=== PATIENT | female | born 1945 | race Caucasian/White ===

== ENCOUNTER 2017-01-31 08:11 | Emergency (ER) | payer MEDICARE ==
[2017-01-31] MEDS ORDERED: HYDROcodone/ACETAMIN 5-325 MG* 1 TAB PO ONE (09:45)
--- NOTE | 2017-01-31 10:27 | RAD ---
Indication: Head injury, loss of consciousness. CT of the brain was performed without IV contrast. Ventricular structures are midline. No midline shift is noted. The extra-axial spaces are prominent consistent with cortical atrophy. There is no evidence of intracranial mass or hemorrhage. No other high or low density lesions identified. Mastoid air cells and paranasal sinuses demonstrates mucous retention cyst in the left maxillary sinus and some opacification mucosal thickening of ethmoid air cells. Mastoid air cells are unremarkable. Overall no significant change is noted since previous exam of January 28, 2015. IMPRESSION: There is no evidence of intracranial mass or hemorrhage noted. Likely chronic sinusitis.
--- NOTE | 2017-01-31 10:40 | RAD ---
HISTORY: Fall, right shoulder pain COMPARISONS: None VIEWS: 7, Frontal internal rotation, external rotation, outlet, and axillary views of the right shoulder with frontal and frontal oblique views of the right clavicle FINDINGS: BONE DENSITY: Normal. BONES: There is a comminuted overriding fracture of the mid third of the right clavicle. The needle fragment overrides the lateral fragment by approximately 3 cm. JOINTS: There is mild osteoarthritis of the AC joint ALIGNMENT: There is no dislocation. SOFT TISSUES: Unremarkable. OTHER FINDINGS: None. IMPRESSION: COMMINUTED OVERRIDING FRACTURE OF THE RIGHT CLAVICLE
[2017-01-31 11:48] VITALS: BP 154/71
--- NOTE | 2017-01-31 19:08 | ED ---
Serene Hwang SooYoung, scribed for Walt Fitzpatrick MD on 01/31/17 at 0933 . Head Injury - HPI Summary HPI Summary: A 71 y/o F presents to ED after fall [employer] onset 729. Pt states she tripped over her blind dog and fell to the ground, landing directly on her R shoulder. She hit the R side of her head, had a momentary LOC. She was ambulatory after the fall. Associated sx: mildly confusion, R shoulder pain and collarbone pain, neck pain with movement. Denies abd pain, back pain, hip pain, dental trauma, diplopia, facial numbness. She broke her pelvis 4 years ago also after tripping over her dog. Took an aspirin yesterday. Takes Lisinopril. R-hand dominant. - History Of Current Complaint Chief Complaint: EDGeneral Stated Complaint: FALL Time Seen by Provider: 01/31/17 09:16 Hx Obtained From: Patient Mechanism Of Injury: Fall From A Standing Position Onset/Duration: Still Present Onset of Pain: Hours, Prior to Arrival Severity Initially: Moderate Pain Intensity: 7 Pain Scale Used: 0-10 Numeric Location of Head Injury: Parietal - R Associated Signs And Symptoms: LOC (Time In Secs./Mins/Hrs) - momentary, Confusion, Neck Pain, Other: - pos: R shoulder pain; R-sided collarbone. Neg abd pain, back pain, hip pain, dental trauma, diplopia, facial numbness - Allergies/Home Medications Allergies/Adverse Reactions: Allergies Allergy/AdvReac Type Severity Reaction Status Date / Time Tetracycline Allergy Rash Verified 01/31/17 08:22 PMH/Surg Hx/FS Hx/Imm Hx Previously Healthy: Yes Endocrine/Hematology History: Denies: Hx Anticoagulant Therapy, Hx Blood Disorders, Hx Blood Transfusions, Hx Bone Marrow Disease, Hx Diabetes, Hx Systemic Lupus Erythematosus, Hx Sickle Cell Disease, Hx Thyroid Disease, Hx Anemia, Hx Unexplained Bleeding, Other Endocrine/Hematological Disorders Cardiovascular History: Reports: Hx Hypertension Denies: Hx Congestive Heart Failure Respiratory History: Denies: Hx Asthma, Hx Chronic Obstructive Pulmonary Disease (COPD) GI History: Denies: Hx Ulcer History: Reports: Other Problems/Disorders - CYSTOCELE Denies: Hx Renal Disease Musculoskeletal History: Denies: Hx Arthritis, Hx Back Problems, Hx Bursitis, Hx Congenital Bone Abnormalities, Hx Fibromyalgia, Hx Gout, Hx Orthopedic Injury, Hx Osteoporosis, Hx Scoliosis, Hx Tendonitis, Other Musculoskeletal History Sensory History: Reports: Hx Contacts or Glasses - GLASSES Denies: Hx Hearing Aid Opthamlomology History: Reports: Hx Contacts or Glasses - GLASSES Psychiatric History: Reports: Hx Depression - Cancer History Hx Chemotherapy: No Hx Radiation Therapy: No Hx Palliative Cancer Treatment: No - Surgical History Surgery Procedure, Year, and Place: hernia repair, strangulated hernia repair in [facility]. Hx Anesthesia Reactions: No Infectious Disease History: No Infectious Disease History: Denies: Hx Hepatitis, Hx Human Immunodeficiency Virus (HIV), Traveled Outside the [place] in Last 30 Days - Family History Known Family History: Positive: Hypertension - Social History Occupation: Employed Full-time Lives: With Family Alcohol Use: Daily Alcohol Amount: wine with dinner Hx Substance Use: No Substance Use Type: Reports: None Hx Tobacco Use: No Smoking Status (MU): Never Smoked Tobacco Review of Systems Negative: Diplopia Negative: Dental Pain Negative: Abdominal Pain Positive: Other - pos: head pain, pain to L shoulder, collarbone, neck pain; neg : back and hip pain Neurological: Other - pos: mild confusion; momentary LOC Negative: Numbness - facial All Other Systems Reviewed And Are Negative: Yes Physical Exam - Summary Physical Exam Summary: The patient is well-nourished in no acute distress and in no acute pain. The skin is warm and dry and skin color reflects adequate perfusion. HEENT: The head is normocephalic. There is ecchymosis and hematoma on L temporal area. No Cosme's sign, no racoon sign.The pupils are equal and reactive. The conjunctivae are clear and without drainage. Nares are patent and without drainage. Mouth reveals moist mucous membranes and the throat is without erythema and exudate. The external ears are intact. The ear canals are patent and without drainage. The tympanic membranes are intact. No hemotympanum. No facial numbness. Neck is supple with full range of motion and non-tender. There are no carotid bruits. There is no neck vein distension. Respiratory: Chest is non-tender. Lungs are clear to auscultation and breath sounds are symmetrical and equal. Cardiovascular: Hear is regular rate and rhythm. There is no murmur or rub auscultated. There is no peripheral edema and pulses are symmetrical and equal. Abdomen: The abdomen is soft and non-tender. There are normal bowel sounds heard in all four quadrants and there is no organomegaly palpated. Musculoskeletal: There is no back pain noted. Marked tenderness to R shoulder and R clavicle, more on distal clavicle, with mild deformity. The humoral shaft is nontender. The forearm radius is nontender. Extremities are non-tender with full range of motion. There is good capillary refill. Distal neurovascular is intact. There is no peripheral edema or calf tenderness elicited. Neurological: Patient is alert and oriented to person, place and time. The patient has symmetrical motor strength in all four extremities. Cranial nerves are grossly intact. Deep tendon reflexes are symmetrical and equal in all four extremities. Negative NOAH's. Psychiatric: The patient has an appropriate affect and does not exhibit any anxiety or depression. Triage Information Reviewed: Yes Vital Signs On Initial Exam: Initial Vitals Temp Pulse Resp BP Pulse Ox 98.2 F 88 20 163/77 96 01/31/17 08:17 01/31/17 08:17 01/31/17 08:17 01/31/17 08:17 01/31/17 08:17 Vital Signs Reviewed: Yes - [place] Coma Scale Coma Scale Total: 15 [place] Coma Scale Comments: 15 at bedside. Likely 14 initially. Diagnostics - Vital Signs Vital Signs Temp Pulse Resp BP Pulse Ox 01/31/17 09:15 98.2 F 80 19 161/89 100 01/31/17 09:12 161/89 01/31/17 08:17 98.2 F 88 20 163/77 96 - Laboratory Lab Statement: Any lab studies that have been ordered have been reviewed, and results considered in the medical decision making process. - Radiology R SHOULDER Xray Interpretation: Positive (See Comments) - IMPRESSION: COMMINUTED OVERRIDING FRACTURE OF THE RIGHT CLAVICLE. ED physician has reviewed this radiology report and agrees. Radiology Interpretation Completed By: Radiologist R CLAVICLE Xray Interpretation: Positive (See Comments) - IMPRESSION: COMMINUTED OVERRIDING FRACTURE OF THE RIGHT CLAVICLE. ED physician has reviewed this radiology report and agrees. Radiology Interpretation Completed By: Radiologist - CT Brain CT CT Interpretation: No Acute Changes - IMPRESSION: No evidence of intracranial hemorrhage or mass noted. Likely chronic sinusitis. ED physician has reviewed this radiology report and agrees CT Interpretation Completed By: Radiologist Re-Evaluation - Re-Evaluation 1 Re-Evaluation Time: 11:19 Comment: Discussed imaging results with pt and family. F/u with ortho. Pt voiced understanding. Head Injury Course/Dx Course Of Treatment: Pt is a 71 y/o F presenting after fall onset 729. Pt states she tripped over her blind dog and fell to the ground, landing directly on her R shoulder. She hit the R side of her head, had a momentary LOC. She was ambulatory after the fall. Associated sx: mildly confusion, R shoulder pain and collarbone pain, neck pain with movement. Denies abd pain, back pain, hip pain, dental trauma, diplopia, facial numbness. She broke her pelvis 4 years ago also after tripping over her dog. Took an aspirin yesterday. Takes Lisinopril. R- hand dominant. R Shoulder and R Clavicle XR shows "COMMINUTED OVERRIDING FRACTURE OF THE RIGHT CLAVICLE." Brain CT is negative for acute findings. Pt given [place] in ED. Will D/C home in sling without meds to f/u with ortho. Pt states she has Percocet at home. - Diagnoses Differential Diagnosis/HQI/PQRI: Concussion With LOC, Intracranial Bleed, Other - shoulder dislocation/fracture, clavicle fracture Provider Diagnoses: Concussion, Right clavicle fracture Discharge - Discharge Plan Condition: Stable Disposition: HOME Patient Education Materials: Concussion (ED), Clavicle Fracture (ED) Referrals: Cb Hamm MD [Primary Care Provider] - Blanco Gibbs MD [Medical Doctor] - Additional Instructions: Follow up with Dr. Gibbs, orthopedics, next week. Use ice as needed. As we discussed, use the Percocet you have at home for pain, half to one tablet every 6 hours for pain. Please return to ED if you experience new or worsening symptoms. The documentation as recorded by the Serene starkey SooYoung accurately reflects the service I personally performed and the decisions made by me, Walt Fitzpatrick MD.
== END 2017-01-31 11:48 | disposition home or self-care (01) ==
LOC: ED 08:11
DX: S06.0X1A Concussion with loss of consciousness of 30 minutes or less, initial encounter (principal); S42.001A Fracture of unspecified part of right clavicle, initial encounter for closed fracture; W01.0XXA Fall on same level from slipping, tripping and stumbling without subsequent striking against object, initial encounter; Y93.9 Activity, unspecified; Y92.89 Other specified places as the place of occurrence of the external cause
CPT/HCPCS: 70450; 99282

== ENCOUNTER 2017-04-10 12:04 | Day surgery (SDC) | payer MEDICARE ==
[~2017-04-10 12:04] MED LIST: Buffered Lidocaine 0.9% SYRIN* 5 ML/SYR SYRINGE INTRADERM ONE; Dexamethasone IV* 4 MG/ML 1 ML (4 MG) IV SLOW PU ONE; Famotidine IV* 10 MG/ML 2 ML (20 mg) IV ONE
[2017-04-10] MEDS ORDERED: Famotidine IV* 10 MG/ML 2 ML (20 mg) ONE (12:29)
[2017-04-10] MEDS ORDERED: Dexamethasone IV* 4 MG/ML 1 ML (4 MG) ONE (12:29)
[2017-04-10] MEDS ORDERED: Buffered Lidocaine 0.9% SYRIN* 5 ML/SYR SYRINGE ONE (12:30)
[2017-04-10] MEDS ORDERED: ceFAZolin 2 GM PREMIX (*) 2 GM/50 ML BAG IVPB ONE (12:30)
[2017-04-10] MEDS ORDERED: Atracurium* 10 MG/ML 10 ML VIAL ONE (13:26)
[2017-04-10] MEDS ORDERED: fentaNYL* 50 MCG/ML 5 ML VIAL (250 MCG VIAL) ONE (13:26)
[2017-04-10] MEDS ORDERED: Midazolam* 1 MG/ML 2 ML VIAL (2 MG) ONE (13:27)
[2017-04-10] MEDS ORDERED: Propofol* 10 MG/ML 20 ML BTL IV PUSH ONE (14:07)
[2017-04-10] MEDS ORDERED: Ketorolac INJ* 30 MG/ML 1 ML VIAL ONE (14:07)
[2017-04-10] MEDS ORDERED: Ondansetron INJ* 2 MG/ML VIAL ONE ×2 (14:07→18:05)
[2017-04-10] MEDS ORDERED: Lidocaine 2% PF * 5 ML VIAL ONE (14:34)
[2017-04-10] MEDS ORDERED: Bupivacaine 0.5% SDV PF* 30 ML VIAL ONE (14:54)
[2017-04-10] MEDS ORDERED: Glycopyrrolate IV* 0.2 MG/ML 1 ML VIAL ONE (15:24)
[2017-04-10] MEDS ORDERED: DiMENhydriNATE IV* 50 MG/ML VIAL IV PUSH PRN (15:27)
[2017-04-10] MEDS ORDERED: HYDROmorphone INJ* 1 MG/ML CARPUJECT SYRINGE IV PRN (15:27)
[2017-04-10] MEDS ORDERED: oxyCODONE/Acetamin 5/325 MG* TAB PO PRN (15:27)
[2017-04-10] MEDS ORDERED: Ondansetron INJ* 2 MG/ML VIAL IV PRN (15:27)
[2017-04-10] MEDS ORDERED: Phenylephrine IV* 40 MCG/ML 10 ML SYRINGE ONE (16:29)
[2017-04-10] MEDS ORDERED: fentaNYL* 50 MCG/ML 2 ML VIAL (100 MCG VIAL) ONE (17:53)
[2017-04-10] MEDS ORDERED: Metoprolol Tartrate IV* 1 MG/ML 5 ML VIAL ONE (17:59)
[2017-04-10] MEDS: fentaNYL* 50 MCG/ML 2 ML VIAL (100 MCG VIAL) IV PRN ×3 (18:05→18:15)
--- NOTE | 2017-04-10 20:27 | RAD ---
CPT II Codes: 6045F INDICATION: Fractured right clavicle TECHNIQUE: Intraoperative fluoroscopy was provided during plate and screw fixation of the right clavicle. FINDINGS: 8 spot films depict anatomic alignment of the clavicle status post plate and screw fixation.. Fluoroscopy time: 22 seconds IMPRESSION: As above.
[2017-04-10 22:15] VITALS: BP 121/63
--- NOTE | 2017-04-15 00:46 | OP ---
DATE OF OPERATION: 04/10/17 [facility] DATE OF : 45 SURGEON: Blanco Gibbs MD [facility] [employer] PREPARER: JOHNNA Reilly. A physician entry level administrative assistant was required for the length of the procedure for assistance with retraction and closure. ANESTHESIOLOGIST: Dr. Mahesh Zhu. ANESTHESIA: General anesthesia. PRE-OP DIAGNOSIS: Right clavicle fracture, mid shaft, displaced, delayed union. POST-OP DIAGNOSIS: Right clavicle fracture, mid shaft, displaced, delayed union. OPERATIVE PROCEDURE: 1. Open reduction internal fixation right mid shaft clavicle, delayed union. 2. Debridement/takedown of callus at fracture site, right mid shaft clavicle. POSITIONING: Beach chair positioning. IV FLUIDS: See anesthesia note. ANTIBIOTICS: Ancef 2 g IV. COMPLICATIONS: None. SPECIMENS: None. IMPLANTS: Synthes right distal clavicle plate, locking with multiple 3.5 mm and 2.7 mm screws, mostly locking, but several 3.5 mm screws nonlocking. There was also a lag screw placed that was 2.7 mm, fully-threaded cortical nonlocking screw. As well, we used bone chips, cancellous, allograft. ESTIMATED BLOOD LOSS: Minimal. COMPLICATIONS: None. 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 The patient injured herself by falling over her dog. I first met the patient in clinic on February 07. She had a 100% more displacement and a small amount of comminution of a right midshaft clavicle fracture. At that time, I reviewed the benefits, risks, and potential complications of nonoperative and operative management. The patient opted for nonoperative management at that time. The patient followed up with me. When she returned to my clinic on March 28, the patient was very unhappy that her right shoulder was still significantly painful. She felt movement and pain at the fracture site. She had not been able to return to work for the [employer]. The patient was not optimistic about healing of the fracture and requested surgical management. I acknowledged that given the passage of some time at 2.5 months, there would likely be some callus to take down at the fracture site and that the surgery will be harder than if it had been done at her first presentation. When I examined the patient at the clinic, there appeared to be movement at the fracture site. Certainly there was pain at the fracture site when I tried to manipulate the ends to the clavicle, medial and lateral. I discussed the risks and potential complications of surgery including bleeding, infection, nerve or blood vessel injury, hardware failure, nonunion, hardware pull out. As well, I spoke about the neurovascular bundles directly inferior to the fracture site and the callus that I would doubtless encounter intraoperatively. DESCRIPTION OF PROCEDURE: In preoperative holding, the patient signed a surgical consent. The operative extremity was marked in preoperative holding. The patient was taken back to the operating room and placed supine on the operating room table. The patient was sedated and intubated. The patient was placed into the beach chair position. Head and neck were watched carefully so that they remained comfortable and was slightly tilted towards the left side. The right shoulder was prepped with ChloraPrep and the right shoulder was draped. C-arm had been brought in just prior to prep and drape to confirm that good radiographs could be obtained. Surgical time-out. I made a curved skin incision over the fracture fragments of the right clavicle. I dissected through the superficial subcutaneous tissue with a deep knife blade. I then changed to scissors and Bovie electrocautery to get down to bone. I first encountered the medial clavicle shaft fracture fragment. I cleared off its superior surface with a periosteal elevator. The lateral clavicle fragment was significantly inferiorly displaced. There was significant callus encountered in the region of fracture. There was some slight movement at the fracture site with manual manipulation, but there was significant callus present about the fracture. With slow, very careful dissection, mostly using Bovie electrocautery and a periosteal elevator I dissected around the callus tissue as well as the lateral clavicle fragment. This was done with much meticulousness to avoid diving deep. Eventually, I removed callus. I freed up both fracture fragments so that they could reduce. This took some time. The medial and lateral clavicle fracture fragments were able to lock into place with clear fracture edges posteriorly that clearly came together interdigitating. Irrigation. I next placed a 2.7 mm cortical screw using lag technique from anterior to posterior from the medial clavicle fracture fragments to the lateral clavicle fracture fragment. This was after the bone fragments had been reduced with a bone forceps. I was happy with this reduction and my first bit of fixation. There was still a gap evident about the anterior aspect of the fracture site. I went looking through the wound for a larger fracture fragment that might be able to be put back into that defect in the anterior aspect of the fracture site. There were tiny flecks of bone about the fracture site. I then noted a prominence, that I had first assumed to be a tubercle, about the anterior aspect of the lateral most and of the medial clavicle fracture fragment. I realized that this was in fact a partially healed fragment of bone, in a malunion position. I used an osteotome to release this fragment from callus. I debrided the fracture end and identified a piece of bone. It should be noted that I had prepared nicely the ends of the medial and lateral clavicle fracture fragments with a curette and rongeur prior to reduction and fixation with my 2.7 mm screw. I next placed the small bony fragment in the anterior aspect of the fracture site. I kept it in place with a permanent suture, I believe to be a #2 Fiber wire. This nicely reduced the bony fragment. There still was a small amount of defect in the anterior aspect of the clavicle at the fracture site. Therefore, I asked for some cancellous bone fragments, allograft from cadaver. I had discussed this with the patient preoperatively and she had given me a verbal permission to use this. I placed it after the plate and screws had been placed. I next picked a plate that would best fit the contour of the right clavicle. I was choosing between a lateral or distal locking plate of the right clavicle, superior, and a left-sided anterosuperior plate. Ultimately, I decided that the right lateral clavicle plate had a better fit. Using cable based plate benders, I contoured slightly the plate. It fit excellently to the superior aspect of the right clavicle. I placed the plate superiorly and placed a 3.5 mm nonlocking screw through the plate medially and a 2.7 mm nonlocking screw laterally. This sucked the plate nicely to bone. Radiographs, multiple, were obtained that showed excellent reduction and excellent placement of hardware. I then filled the plate with multiple additional screws. I placed two locking screws medially, 3.5 mm, this was in addition to the nonlocking 3.5 mm screw I had placed medially. Then laterally, I placed multiple 2.7 mm locking screws, 5. This is including a 2.7 mm locking screw that I used to replace the initial 2.7 mm nonlocking screw that I had placed. I also placed a 3.5 mm nonlocking screw lateral to the main fracture line. The reduction was still excellent. The hardware was stable with multiple screws both medial and lateral to the fracture site. X-ray imaging confirmed excellent length of all screws. I next placed a full packet of cancellous allograft bone, that had been pulverized, into the anterior defect, remaining at the anterior cortex of the clavicle at the fracture site. I next closed the deltotrapezial fascia overlying the clavicle with figure-of- eight stitches using Vicryl 0 suture. I next closed the subcutaneous layer with buried simple stitches using Vicryl 3-0 suture. The subcuticular layer was then closed with a running stitch using Monocryl 4-0 suture. Mastisol, Steri-Strips. 4x4's, Tegaderm. The patient was placed in an UltraSling and returned to the supine position and extubated. DISPOSITION: The patient was discharged home when medically stable. She was given Percocet for pain control and Keflex for infection prophylaxis. She will follow up with me in 10 to 14 days for a wound check and x-rays. [id number]/CPS #: [id number] STEFANO
== END 2017-04-10 20:35 | disposition home or self-care (01) ==
LOC: OR 12:04
PROVIDERS: ATTEND Orthopaedic Surgery
DX: S42.021G Displaced fracture of shaft of right clavicle, subsequent encounter for fracture with delayed healing (principal); Y92.9 Unspecified place or not applicable; I10 Essential (primary) hypertension; W01.0XXD Fall on same level from slipping, tripping and stumbling without subsequent striking against object, subsequent encounter
CPT/HCPCS: 76000; C1713; C1776; J0690; J1100; J1885; J2250; J2405; J2704; J3010; J3490

== ENCOUNTER 2017-11-14 18:38 | Emergency (ER) | payer MEDICARE ==
--- NOTE | 2017-11-14 19:21 | ED ---
Back Pain - HPI Summary HPI Summary: Patient is a 72-year-old female who presents emergency department for low back injury that occurred yesterday. Patient states she lost her balance on a curb, fell and landed onto her buttocks. Denies head injury or loss of consciousness. Patient states she for currently looses her balance and is going to the neurologist for further evaluation. Patient states yesterday she had some low back pain that exacerbated today. She states she is having a hard time walking and sitting secondary to pain. She denies radicular pain and sore legs, numbness, tingling or weakness to legs. She denies bowel or bladder incontinence or retention. States she tried taking oxycodone and Motrin today with minimal relief. Symptoms are mild in severity. Movement and walking makes it worse. Lying flat makes symptoms better. - History of Current Complaint Chief Complaint: EDBackInjuryPain Stated Complaint: FALL Time Seen by Provider: 11/14/17 18:54 Hx Obtained From: Patient Pain Intensity: 4 - Allergies/Home Medications Allergies/Adverse Reactions: Allergies Allergy/AdvReac Type Severity Reaction Status Date / Time ephedrine Allergy Shakes Verified 11/14/17 18:51 morphine Allergy See Comment Verified 11/14/17 18:51 naproxen Allergy Unknown Verified 11/14/17 18:51 Reaction Details Tetracyclines Allergy Rash Verified 11/14/17 18:51 narcotics Allergy See Comment Uncoded 11/14/17 18:51 PMH/Surg Hx/FS Hx/Imm Hx Previously Healthy: Yes Endocrine/Hematology History: Reports: Hx Anemia - HX OF Denies: Hx Anticoagulant Therapy, Hx Blood Disorders, Hx Blood Transfusions, Hx Bone Marrow Disease, Hx Diabetes, Hx Systemic Lupus Erythematosus, Hx Sickle Cell Disease, Hx Thyroid Disease, Hx Unexplained Bleeding, Other Endocrine/ Hematological Disorders Cardiovascular History: Reports: Hx Hypertension - ON MEDICATON FOR Denies: Hx Congestive Heart Failure, Hx Pacemaker/ICD Respiratory History: Reports: Other Respiratory Problems/Disorders - CHRONIC SINUSITIS Denies: Hx Asthma, Hx Chronic Obstructive Pulmonary Disease (COPD) GI History: Denies: Hx Ulcer History: Reports: Other Problems/Disorders - CYSTOCELE Denies: Hx Renal Disease Musculoskeletal History: Reports: Hx Arthritis - SHOULDER, HIP, WRISTS, Other Musculoskeletal History - OSTEOPOROSIS Denies: Hx Back Problems, Hx Bursitis, Hx Congenital Bone Abnormalities, Hx Fibromyalgia, Hx Gout, Hx Orthopedic Injury, Hx Osteoporosis, Hx Scoliosis, Hx Tendonitis Sensory History: Reports: Hx Contacts or Glasses - GLASSES Denies: Hx Hearing Aid Opthamlomology History: Reports: Hx Contacts or Glasses - GLASSES Psychiatric History: Reports: Hx Anxiety - HX OF, Hx Depression - OCCASIONALLY IN THE WINTER - Cancer History Hx Chemotherapy: No Hx Radiation Therapy: No Hx Palliative Cancer Treatment: No - Surgical History Surgery Procedure, Year, and Place: LEFT INGUINAL hernia repair-05/2015-FOR STRANGULATION. FEMORAL HERNIA REPAIR-07/2015 Hx Anesthesia Reactions: Yes - NAUSEA/VOMITING, DROPPED BLOOD PRESSURE Infectious Disease History: No Infectious Disease History: Denies: Hx Hepatitis, Hx Human Immunodeficiency Virus (HIV), Traveled Outside the [place] in Last 30 Days - Family History Known Family History: Positive: Hypertension - Social History Alcohol Use: Daily Alcohol Amount: A GLASS OF wine with dinner Hx Substance Use: No Substance Use Type: Reports: None Hx Tobacco Use: No Smoking Status (MU): Never Smoked Tobacco Amount Used/How Often: HX OF EXPOSURE TO 2ND HAND SMOKE IN THE PAST Review of Systems Genitourinary: Negative Positive: Other - Low back pain Skin: Negative Negative: Weakness, Paresthesia, Numbness, Syncope All Other Systems Reviewed And Are Negative: Yes Physical Exam Triage Information Reviewed: Yes Vital Signs On Initial Exam: Initial Vitals Temp Pulse Resp BP Pulse Ox 98.9 F 89 16 180/78 100 11/14/17 18:42 11/14/17 18:42 11/14/17 18:42 11/14/17 18:42 11/14/17 18:42 Vital Signs Reviewed: Yes Appearance: Positive: Well-Appearing - Patient lying in bed in no acute distress. Family present. Skin: Positive: Warm, Dry Head/Face: Positive: Normal Head/Face Inspection Eyes: Positive: Normal Neck: Positive: Supple Musculoskeletal: Positive: Other - 5 out of 5 strength in bilateral lower extremities flexion and dorsiflexion. No midline lumbar tenderness. Pain to the right SI joint Neurological: Positive: Normal, CN Intact II-III Psychiatric: Positive: Affect/Mood Appropriate Diagnostics - Vital Signs Vital Signs Temp Pulse Resp BP Pulse Ox 11/14/17 18:42 98.9 F 89 16 180/78 100 - Laboratory Lab Statement: Any lab studies that have been ordered have been reviewed, and results considered in the medical decision making process. Back Pain Course/Dx - Course Course Of Treatment: Pt. presenting for low back pain after falling yesterday. She has no neurological deficits on exam. Xrays are negative for fracture or acute findings, reading per radiology. Constipation noted on xrays. Results were discussed. Pt. states she is very sensitive to pain medications. She feels she would benefit from a muscle relaxer. Also advised pt. to take a stool softener or laxative for constipation. To apply warm compresses. To call PCP tomorrow for a f.u apt. To return to ER if symptoms change or worsen. Pt. understands and agrees with plan. - Diagnoses Differential Diagnosis/HQI/PQRI: Positive: Cauda Equina Syndrome, Fracture, Strain, Sprain Provider Diagnoses: Fall, Low back sprain, Muscle spasm Discharge - Sign-Out/Discharge Documenting (check all that apply): Discharge/Admit/Transfer - Discharge Plan Condition: Good Disposition: HOME Prescriptions: Cyclobenzaprine TAB* [Flexeril 10 MG TAB*] 10 mg PO TID PRN #9 tab PRN Reason: Pain Patient Education Materials: Constipation (ED), Low Back Strain (ED), Muscle Spasm (ED) Referrals: Cb Hamm MD [Primary Care Provider] - Additional Instructions: Schedule a follow up appointment with your PCP Take muscle relaxer as directed Take motrin as directed for pain Apply warm compresses Would recommend taking a stool softener or laxative for constipation seen on xrays such as MiraLAX Increase fluids and fiber in diet Return to ER if symptoms change or worsen - Billing Disposition and Condition Condition: GOOD Disposition: Home
--- NOTE | 2017-11-14 20:00 | RAD ---
Indication: Back pain. 5 views of lumbar spine demonstrates diffuse osteopenia. Levoscoliosis centered at L3. Pedicles appear intact. No fracture is noted. There is likely grade 1 spondylolisthesis of L4 on 5. Stool obscures detail. IMPRESSION: Likely grade 1 spondylolisthesis of L4 on 5. No fracture noted.
--- NOTE | 2017-11-14 20:01 | RAD ---
Indication: Back pain. 2 views of the sacrum and coccyx demonstrates no fracture. No other bone or joint abnormality is noted. IMPRESSION: No fracture of the sacrum or coccyx.
[2017-11-14] MEDS ORDERED: Cyclobenzaprine TAB* 10 MG PO ONE (20:26)
[2017-11-14 20:44] VITALS: BP 129/74
== END 2017-11-14 20:44 | disposition home or self-care (01) ==
LOC: ED 18:38
DX: S33.5XXA Sprain of ligaments of lumbar spine, initial encounter (principal); M62.838 Other muscle spasm; W19.XXXA Unspecified fall, initial encounter; Y92.9 Unspecified place or not applicable
CPT/HCPCS: 72110; 72220; 99282; A9270-GY

== ENCOUNTER 2017-12-04 11:05 | Observation (INO) | payer MEDICARE ==
--- NOTE | 2017-12-04 11:31 | ED ---
Upper Extremity Pain - HPI Summary HPI Summary: This is Mary Anne starkey, documenting for attending Maribel Ernst MD. 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 She reports associated head trauma and feeling lightheaded and weak. She states she is eating and drinking well. Patient denies LOC, CP, SOB, numbness, tingling, neck pain, elbow pain, hip and leg pain. Patient and family report frequent falls due to progressively worsening balance issues. Patient uses walker at home. They state they have an appointment with a neurologist in the fall of 2018. She denies a history of CP, SOB, PA, CVA. Medications include Lisinopril. - History of Current Complaint Chief Complaint: EDExtremityUpper Stated Complaint: FALL/HEAD LACERATION Time Seen by Provider: 12/04/17 11:29 Hx Obtained From: Patient, Family/Staff Educator Mechanism Of Injury: Fall From A Standing Position - seated position Onset/Duration: Started Hours Ago Pain Location: Shoulder Alleviating Factor(s): Nothing Associated Signs & Symptoms: Positive: Weakness, Other - associated head trauma. Negative: Numbness/Tingling, Chest Pain, SOB, Neck Pain Related History: Similar Episode/Dx As - frequent falls - Allergies/Home Medications Allergies/Adverse Reactions: Allergies Allergy/AdvReac Type Severity Reaction Status Date / Time ephedrine Allergy Shakes Verified 11/14/17 18:51 morphine Allergy See Comment Verified 11/14/17 18:51 naproxen Allergy Unknown Verified 11/14/17 18:51 Reaction Details Tetracyclines Allergy Rash Verified 11/14/17 18:51 narcotics Allergy See Comment Uncoded 11/14/17 18:51 PMH/Surg Hx/FS Hx/Imm Hx Endocrine/Hematology History: Reports: Hx Anemia - HX OF Denies: Hx Anticoagulant Therapy, Hx Blood Disorders, Hx Blood Transfusions, Hx Bone Marrow Disease, Hx Diabetes, Hx Systemic Lupus Erythematosus, Hx Sickle Cell Disease, Hx Thyroid Disease, Hx Unexplained Bleeding, Other Endocrine/ Hematological Disorders Cardiovascular History: Reports: Hx Hypertension - ON MEDICATON FOR Denies: Hx Congestive Heart Failure, Hx Pacemaker/ICD Respiratory History: Reports: Other Respiratory Problems/Disorders - CHRONIC SINUSITIS Denies: Hx Asthma, Hx Chronic Obstructive Pulmonary Disease (COPD) GI History: Denies: Hx Ulcer History: Reports: Other Problems/Disorders - CYSTOCELE Denies: Hx Renal Disease Musculoskeletal History: Reports: Hx Arthritis - SHOULDER, HIP, WRISTS, Other Musculoskeletal History - OSTEOPOROSIS Denies: Hx Back Problems, Hx Bursitis, Hx Congenital Bone Abnormalities, Hx Fibromyalgia, Hx Gout, Hx Orthopedic Injury, Hx Osteoporosis, Hx Scoliosis, Hx Tendonitis Sensory History: Reports: Hx Contacts or Glasses - GLASSES Denies: Hx Hearing Aid Opthamlomology History: Reports: Hx Contacts or Glasses - GLASSES Psychiatric History: Reports: Hx Anxiety - HX OF, Hx Depression - OCCASIONALLY IN THE WINTER - Cancer History Hx Chemotherapy: No Hx Radiation Therapy: No Hx Palliative Cancer Treatment: No - Surgical History Surgery Procedure, Year, and Place: LEFT INGUINAL hernia repair-05/2015-FOR STRANGULATION. FEMORAL HERNIA REPAIR-07/2015 Hx Anesthesia Reactions: Yes - NAUSEA/VOMITING, DROPPED BLOOD PRESSURE Infectious Disease History: No Infectious Disease History: Denies: Hx Hepatitis, Hx Human Immunodeficiency Virus (HIV), Traveled Outside the [place] in Last 30 Days - Family History Known Family History: Positive: Hypertension - Social History Alcohol Use: Daily Alcohol Amount: A GLASS OF wine with dinner Hx Substance Use: No Substance Use Type: Reports: None Hx Tobacco Use: No Smoking Status (MU): Never Smoked Tobacco Amount Used/How Often: HX OF EXPOSURE TO 2ND HAND SMOKE IN THE PAST Review of Systems Negative: Chest Pain Negative: Shortness Of Breath Negative: Abdominal Pain Musculoskeletal: Negative - neck, hip, elbow pain Positive: Myalgia - left shoulder pain Neurological: Other - lightheaded/dizzy Positive: Headache - head trauma, Weakness. Negative: Numbness All Other Systems Reviewed And Are Negative: Yes Physical Exam - Summary Physical Exam Summary: Skin: Warm Eyes: Normal ENT: Normal Neck: Supple, nontender Respiratory: Clear to auscultation Cardiovascular: Regular rate, regular rhythm. Normal S1, S2. Abdomen: Soft, nontender Musculoskeletal: Normal, Strength/ROM Intact Neurological: Normal, A&Ox3; GCS: 15 Head:Swollen Left parietal scalp 2x3cm scabbed over with dried blood over the hair and scalp, No open laceration noted visualization after cleansing wound Psychiatric: mildly flat affect General: No acute distress Triage Information Reviewed: Yes Vital Signs On Initial Exam: Initial Vitals Temp Pulse Resp BP Pulse Ox 98.3 F 88 18 194/99 100 12/04/17 11:20 12/04/17 11:20 12/04/17 11:20 12/04/17 11:20 12/04/17 11:20 Vital Signs Reviewed: Yes Appearance: Positive: Ill-Appearing - C/o left shoulder pain, Thin Diagnostics - Vital Signs Vital Signs Temp Pulse Resp BP Pulse Ox 12/04/17 11:20 98.3 F 88 18 194/99 100 - Laboratory Result Diagrams: 12/04/17 11:44 12/04/17 11:44 Lab Statement: Any lab studies that have been ordered have been reviewed, and results considered in the medical decision making process. - Radiology CXR Radiology Interpretation Completed By: Radiologist - HYPERINFLATION. NO ACTIVE CARDIOPULMONARY DISEASE. ED Physician has reviewed this report. L SHOULDER XR Radiology Interpretation Completed By: Radiologist - THE BONY STRUCTURES ARE NORMAL FOR AGE. ED Physician has reviewed this report - CT Brain CT CT Interpretation Completed By: Radiologist - No intracranial mass or hemorrhage. Scalp hematoma is noted in the left parietal area. ED physician has reviewed this report. - EKG 1154 Cardiac Rate: NL - 86 BPM EKG Rhythm: Sinus Rhythm Course/Dx - Course Course Of Treatment: Labs unremarkable, CXR neg., CT head neg for bleed, XR left shoulder neg for fx. With frequent falls pt c/o "balance issues", neuro consult Dr Ryder obtained. She feels pt is "hyperspastic on the right side" and suspects demyelinating dz vs Old strokes. Pt will need to be admitted for this workup and for unexplained falls for additional imaging studies- MRI/MRA - Diagnoses Provider Diagnoses: Frequent falls, Contusion of scalp, Shoulder contusion, Spasticity - Physician Notifications Discussed Care of Patient With: Pam Ryder - neurology Time Discussed With Above Provider: 14:06 Instructed by Provider To: Admit As Inpatient Discharge - Sign-Out/Discharge Documenting (check all that apply): Patient Departure - Discharge Plan Condition: Fair Disposition: ADMITTED TO [facility] - Billing Disposition and Condition Condition: FAIR Disposition: Admitted to [facility] Consult Consult: At 1525, Dr. Rankin, recommends a Lidocaine patch prior to admission.
[2017-12-04 12:00] LABS: Urine Appearance Cloudy; Urine Blood Negative (Negative); Urine Color Straw; Urine Ketones Negative (Negative); Urine Protein Negative (Negative); Urine Specific Gravity 1.008 (1.010-1.030); Urine Urobilinogen Negative (Negative)
[2017-12-04] MEDS ORDERED: NS 0.9% 1000 ML* 1,000 ML IV SCH ×3 (12:00→18:55)
[2017-12-04 12:20] LABS: ABS Basophils 0.1 10^3/ul (0-0.2); ABS Eosinophils 0.2 10^3/ul (0-0.6); ABS Lymphocytes 1.1 10^3/ul (1.0-4.8); ABS Monocytes 0.5 10^3/ul (0-0.8); ABS Neutrophils 6.9 10^3/ul (1.5-7.7); ABS Nucleated RBC 0 10^3/ul; Eosinophil % 2.2 % (0-6); Hematocrit 42 % (35-47); Hemoglobin 14.7 g/dl (12.0-16.0); Lymphocyte % 12.2 % (25-47); Mean Corpuscular HGB Conc 35 g/dl (31-36); Mean Corpuscular Hemoglobin 32 pg (27-31); Mean Corpuscular Volume 91 fL (80-97); Mean Platelet Volume 7.1 um3 (7.4-10.4); Nucleated Red Blood Cells % 0.1; Platelet Count 345 10^3/ul (150-450); Red Blood Count 4.58 10^6/ul (4.00-5.40); Red Cell Distribution Width 13 % (10.5-15); White Blood Count 8.7 10^3/ul (3.5-10.8)
--- NOTE | 2017-12-04 13:20 | RAD ---
Indication: Fall, head injury. CT of the brain was performed without IV contrast. Ventricular structures are midline. No midline shift is noted. The extra-axial spaces are unremarkable. No evidence of mass or hemorrhage. No other high or low density lesions are identified. Mastoid air cells and paranasal sinuses are unremarkable IMPRESSION: No intracranial mass or hemorrhage. Scalp hematoma is noted in the left parietal area.
--- NOTE | 2017-12-04 13:27 | RAD ---
INDICATION: Left shoulder pain COMPARISON: None TECHNIQUE: Routine frontal, Y and axial views were obtained. FINDINGS: The bony structures, joint spaces, and soft tissues are normal for age. There is minor spurring about the inferior glenoid IMPRESSION: THE BONY STRUCTURES ARE NORMAL FOR AGE.
--- NOTE | 2017-12-04 13:27 | RAD ---
HISTORY: fall COMPARISONS: June 22, 2003 VIEWS: 1: frontal portable view of the chest at 1:11 PM FINDINGS: LINES AND TUBES: None. CARDIOMEDIASTINAL SILHOUETTE: The cardiomediastinal silhouette is normal for portable technique. PLEURA: The costophrenic angles are sharp. No pleural abnormalities are noted. LUNG PARENCHYMA: There is hyperinflation. ABDOMEN: The upper abdomen is clear. There is no subphrenic gas. BONES AND SOFT TISSUES: There is a scoliotic curvature of the spine. The patient is status post internal fixation of the right clavicle. IMPRESSION: HYPERINFLATION. NO ACTIVE CARDIOPULMONARY DISEASE.
[2017-12-04] MEDS ORDERED: Ketorolac INJ* 30 MG/ML 1 ML VIAL IV PUSH ONE (14:35)
[2017-12-04] MEDS: Lidocaine PATCH 5%* 1 PATCH TRANSDERM SCH (15:50)
[2017-12-04] MEDS ORDERED: Cyclobenzaprine TAB* 10 MG PO PRN (18:32)
[2017-12-04] MEDS ORDERED: Ondansetron INJ* 2 MG/ML VIAL IV PRN (18:33)
[2017-12-04] MEDS ORDERED: Gadoteridol* (CONTRAST) 279.3 MG/ML 10 ML IV ONE (19:17)
[2017-12-04] MEDS: Acetaminophen TAB* 325 MG PO PRN (22:16)
[2017-12-04] MEDS: Lisinopril TAB* 10 MG PO SCH (22:17)
[2017-12-04] MEDS: Heparin VIAL(*) 5000 UNITS/ML VIAL (FIVE THOUSAND) SUBCUT SCH (22:17)
--- NOTE | 2017-12-05 00:37 | HP ---
CC: Dr. Hamm; Dr. Pam Ryder; Dr. Kasey Parra * ADMISSION HISTORY AND PHYSICAL: DATE OF ADMISSION: 12/04/17 PRIMARY CARE PROVIDER: Dr. Hamm. MY ATTENDING WHILE IN THE HOSPITAL: Dr. Yolanda Kaufman.* (DICTATED BY JOHNNA WILSON) CONSULTING NEUROLOGISTS: Dr. Pam Ryder; Dr. Kasey Parra CHIEF COMPLAINT: Balance issues, fall. HISTORY OF PRESENT ILLNESS: Ms. Brown is a 72-year-old female with past medical history significant for hypertension and anxiety, who has been having approximately 2 years of issues with her balance with frequent falls. The patient today was sitting on a chair with leaning forward for something to her left, fell off her chair, hit her head and had a scalp hematoma. The patient denied any vertigo. Did feel lightheaded, but had no chest pain or other symptoms associated with this episode. The patient is a poor historian but she thinks about a fall a month. She recently had a fall where she was stepping off a curb. She also feels off-balance when walking down steps. She feels that her right side does not work as well. Has been having some weakness. Recently, had to stop going to ballet due to this. Feels like it is stiff. She also has spasms in her back, in her legs which she initially attributed to a pelvic fracture, which she suffered in 2012 and little spasticity in her upper arm to a clavicle fracture she had last year. The patient feels frequent unsteadiness as well when she stands up, but denies any syncope, any palpitations, any chest pain or shortness of breath, any true vertigo, any nausea and vomiting. The patient has had multiple tick bites over the past several years that she has picked off and does not know if she has had more and has never has the erythema migrans rash. She is concerned that this is all related to Lyme disease because her daughter has a history of Lyme disease. The patient has had increasing fatigue. No weight loss, easy bruising, fevers, chills, sick contacts. The patient had approximately 3 UTIs in her life. The patient has a cystocele, but does not have any dysuria, hematuria, pyuria. The patient has been feeling more forgetful, occasionally forgets where she puts her keys. Has been forgetting some bills. The patient states this all began a couple of years ago in [place] when she first noticed she felt like she was falling forward when going down the stairs. The patient has since then had to retire from [employer] and began using a walker at home due to her fall risk. Due to concern for falls, poor balance, we were asked to evaluate for admission. The patient states she has significant pain in her left shoulder, but her shoulder x-ray shows no fracture. PAST MEDICAL HISTORY: Hypertension, cystocele, anxiety, osteoporosis, pelvic fracture, right and left femoral hernias, clavicle fracture. PAST SURGICAL HISTORY: Tubal ligation, clavicle repair, T and A, septoplasty, hysterectomy, strangulated femoral hernia repair. MEDICATIONS: Lisinopril 10 mg p.o. b.i.d. ALLERGIES: TETRACYCLINE, NAPROXEN, MORPHINE, and SEASONAL ALLERGIES. FAMILY HISTORY: The patient's father at 72 of complications of CHF, COPD, and alcoholism. The patient's mother at 90 of lung cancer, but otherwise healthy. The patient has a sister with hyperlipidemia, hypertension. A sister with hypertension, oophorectomy for unknown reason. The patient has a son with hypertension and a son with epilepsy. SOCIAL HISTORY: The patient has never smoked. The patient uses occasional alcohol, but has cut back recently. The patient has never used illicit drugs. 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 The patient is and has 4 children. REVIEW OF SYSTEMS: A 14-point review of systems was reviewed and is negative except as above in the HPI. PHYSICAL EXAMINATION GENERAL: The patient is a 72-year-old female, who appears frail, is unkempt, has a large amount of blood on the left side of her hair and sitting in a chair , in no acute distress. VITAL SIGNS: At the time of evaluation, temperature 97.1, pulse rate 87, respiratory rate 18, oxygen saturation 97% on room air, blood pressure 146/61. HEENT: Head: Normocephalic, atraumatic. Sclerae anicteric. No conjunctival injection. Nasal mucosa is moist. Oral mucosa is moist. No oropharyngeal erythema, discharge, or exudate. NECK: Supple, nontender. No lymphadenopathy. No carotid bruits auscultated. No JVD. RESPIRATORY: Clear to auscultation bilaterally. No wheezes, rales, or rhonchi. Good air exchange bilaterally. CARDIAC: Regular rhythm with occasional irregular beats. No clicks, murmurs, gallops, or rubs. Pulses are 2+ in the bilateral dorsalis pedis, posterior tibialis, and radial areas. ABDOMEN: Soft, nontender, nondistended. Bowel sounds present, normoactive in all 4 quadrants. No hepatosplenomegaly. No abdominal bruits auscultated. No hepatojugular reflux. GENITOURINARY: No suprapubic or CVA tenderness. SKIN: Large hematoma on the left side of the patient's head. No associated crepitus. Large amount of dry blood on the left side of the patient's head. No other rashes on exposed skin. NEUROLOGIC: Cranial nerves II through XII intact. No nystagmus. Alert and oriented x3. Severe spasticity is present in the right upper and lower extremities. Sensation intact to slight touch in the bilateral upper and lower extremities distally and proximally. Reflexes 1+ in bilateral biceps, patellar , and Achilles areas. No clonus able to be elicited. [id number] performed without difficulty. Slowed finger taps on the right side. PSYCHIATRIC: Pleasant, cooperative somewhat. Slow to respond to questioning. DIAGNOSTIC STUDIES/LAB DATA: White blood cell count 8.7, hemoglobin 14.7, hematocrit 42, platelet count 345. Sodium 134, potassium 3.6, chloride 98, carbon dioxide 26, anion gap 10, BUN 15, creatinine 0.54, glucose 123, calcium 9.6, magnesium 2.2, bilirubin 0.4, AST 18, ALT 13, alkaline phosphatase 113. Troponin I 0.01. Total protein 8.1, albumin of 4.7, globulin 3.4. TSH 3.63. Urine shows specific gravity of 1.008, otherwise unremarkable. Salicylate 7.5, otherwise normal urine toxicology screen. Studies: Electrocardiogram shows normal sinus rhythm. No ST segment abnormalities. No hypertrophy or enlargement. Normal axis. Rate of 85, QTc of 453 consistent with previous exam. Brain CT from 12/04/17 read as no intracranial mass or hemorrhage. Scalp hematoma is noted on the left parietal area. Chest x- ray from 12/04/17 read as hyperinflation. No active cardiopulmonary disease. Shoulder x-ray from 07/18/18 read as bony structures are normal for age. ASSESSMENT AND PLAN/IMPRESSION: Ms. Brown is a 72-year-old female with past medical history significant for hypertension, anxiety, osteoporosis, and frequent falls, who has over the past 2 years been having increased difficulty with ambulation, frequent lightheadedness and falls with multiple fractures. The patient has had to retire from her job and started using a walker due to poor gait balance and she has tightness and weakness in her right side. The patient fell today and had a scalp hematoma. The patient will be admitted to the hospital for supportive care and evaluation for upper motor neuron disease causing spasticity. 1. Frequent falls, spasticity. Differential for the patient's falls is large. The patient has no chest pain, palpitations, or orthostatic hypotension to suggest that this is related to her cardiac dysfunction. The patient appears euvolemic. The patient is non-tachycardic. The patient has no history of heart disease. The patient's blood pressure is elevated. The patient states this does get worse when she takes her lisinopril; however, the patient is very hypertensive in the emergency department. We will continue the patient's lisinopril. The patient's electrocardiogram is unremarkable. The patient has performed [id number] without difficulty. No pronator drift; however, finger taps on the right side are slow and there is significant spasticity with abnormal gait with significant inability to fully lift up her right leg, not able to heel and toe walk. The patient will go for an MRI with and without contrast of her brain and cervical spine to assess for demyelinating lesion, tumor, bulging disk causing myelopathy or upper motor neuron disease. A B12 and vitamin D level are pending. The patient has otherwise unremarkable electrolytes. The patient will be continued on Flexeril for her spasms. The patient will be seen by Physical Therapy and Occupational Therapy to assess for possible rehab needs and to help with her balance. Neurological consultation will be obtained. 2. Osteoporosis. The patient has frequent falls. There is no report of bone densitometry in computer since 2003, which showed osteopenia of left hip and osteoporosis of the lumbar spine. The patient is on vitamin D and calcium. The patient would likely be a candidate for bisphosphonate therapy, which if she is adequate in vitamin D, she should be started on. 3. Hypertension. Continue the patient's lisinopril 10 mg p.o. b.i.d. Hold for low blood pressures. 4. DVT prophylaxis. Heparin subcu. The patient is a high risk. 5. Anxiety. Supportive care. 6. FEN. The patient will have fluids at 50 mL an hour and have a heart healthy diet without caffeine. 7. Code status. The patient would like to be a full code. The patient would like her surrogate decision maker to be her son, Sheldon Amin. He can be reached at [phone] or [phone]. 8. Disposition. The patient will be admitted to observation. TIME SPENT: Approximately 60 minutes were spent on this admission, 30 of which was spent [id number] with the patient and obtaining history and physical and discussing the treatment plan. The plan has been discussed with my attending, Dr. Yolanda Kaufman, and she is in agreement. JOHNNA WILSON [id number]/ECTOR #: [id number] STEFANO
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
[2017-12-05] MEDS: Heparin VIAL(*) 5000 UNITS/ML VIAL (FIVE THOUSAND) SUBCUT SCH ×2 (05:36→14:51)
[2017-12-05] MEDS: Acetaminophen TAB* 325 MG PO PRN ×2 (05:36→16:19)
[2017-12-05 06:14] LABS: ABS Basophils 0 10^3/ul (0-0.2); ABS Eosinophils 0.2 10^3/ul (0-0.6); ABS Lymphocytes 1.2 10^3/ul (1.0-4.8); ABS Monocytes 0.6 10^3/ul (0-0.8); ABS Neutrophils 3.6 10^3/ul (1.5-7.7); ABS Nucleated RBC 0 10^3/ul; Eosinophil % 3.2 % (0-6); Hematocrit 39 % (35-47); Hemoglobin 13.5 g/dl (12.0-16.0); Lymphocyte % 21.5 % (25-47); Mean Corpuscular HGB Conc 34 g/dl (31-36); Mean Corpuscular Hemoglobin 31 pg (27-31); Mean Corpuscular Volume 91 fL (80-97); Mean Platelet Volume 6.9 um3 (7.4-10.4); Nucleated Red Blood Cells % 0.1; Platelet Count 357 10^3/ul (150-450); Red Cell Distribution Width 13 % (10.5-15); White Blood Count 5.7 10^3/ul (3.5-10.8)
[2017-12-05 06:28] LABS: EGFR Non-African American 106.4 (>60)
[2017-12-05] MEDS ORDERED: Potassium Chlor TAB* 20 MEQ TAB.ER PO ONE (08:04)
[2017-12-05] MEDS ORDERED: KCL 20 MEQ/100 ML IVPREMIX* 20 MEQ/100 ML BAG IV ONE (08:04)
--- NOTE | 2017-12-05 08:11 | RAD ---
HISTORY: Spasticity, Falls COMPARISONS: Head CT dated December 04, 2017 TECHNIQUE: The following sequences were obtained of the head: Sagittal T1-weighted images, axial T2-weighted images, axial FLAIR images, axial susceptibility weighted images, axial T1-weighted images. Additionally, axial diffusion-weighted images were obtained with calculated apparent diffusion coefficients. Additionally, sagittal, coronal, and axial T1-weighted images were obtained after contrast enhancement with a gadolinium-based intravenous contrast agent. FINDINGS: HEMORRHAGE/INFARCT: There is no hemorrhage or acute infarct. MASSES/SHIFT: There is no mass or shift. EXTRA-AXIAL SPACES/MENINGES: There are no extra-axial fluid collections. SULCI AND VENTRICLES: There is mild diffuse and proportional enlargement of the sulci and ventricles. CEREBRUM: There is mild elevated T2/FLAIR signal within the periventricular white matter. BRAINSTEM: There is minimally elevated T2/FLAIR signal within the right gilles. CEREBELLUM: There are no focal parenchymal abnormalities. The cerebellar tonsils are normal in size and position. SELLA: The sella is normal. PINEAL: The pineal region is clear. CP ANGLE/TEMPORAL BONES: The labyrinthine structures are grossly normal. VESSELS: There is loss of the flow-void of the right internal jugular vein at the level of the jugular foramen. DIFFUSION ABNORMALITIES: There are no diffusion abnormalities. PARANASAL SINUSES/MASTOIDS: There is mucosal thickening of the ethmoid air cells and left maxillary sinus and sphenoid sinus. There is polypoid mucosal thickening of the nasal cavity on the left. ORBITS: The orbits are unremarkable. BONES AND SOFT TISSUE: Again noted is a left frontal scalp hematoma. OTHER: None IMPRESSION: 1. DIFFUSE INVOLUTIONAL CHANGE. 2. ELEVATED T2/FLAIR SIGNAL WITHIN THE PERIVENTRICULAR, SUBCORTICAL, AND PONTINE WHITE MATTER. WHILE THESE FINDINGS ARE NONSPECIFIC, THEY CAN BE SEEN IN ASSOCIATION WITH MIGRAINE HEADACHE, THE SEQUELA OF PREVIOUS INFECTION OR INFLAMMATION, AND CHRONIC SMALL VESSEL ISCHEMIA. DEMYELINATING DISEASE IS ALSO WITHIN THE DIFFERENTIAL, BUT IS CONSIDERED LESS LIKELY IN THE ABSENCE OF THE APPROPRIATE CLINICAL PRESENTATION. 3. MODERATE SINUS MUCOSAL INFLAMMATORY DISEASE, WITHOUT AIR-FLUID LEVEL TO SUGGEST ACUTE SINUSITIS. 4. LOSS OF THE FLOW-VOID OF THE RIGHT INTERNAL JUGULAR VEIN AT THE LEVEL OF THE JUGULAR FORAMEN. THIS MAY REPRESENT SLOW FLOW VERSUS THROMBOSIS. CONSIDER FURTHER EVALUATION WITH SONOGRAPHY OF THE RIGHT INTERNAL JUGULAR VEIN. R0
--- NOTE | 2017-12-05 08:14 | RAD ---
HISTORY: Spasticity, Falls COMPARISONS: None TECHNIQUE: The following sequences were obtained of the cervical spine: Sagittal and axial T1- and T2-weighted images, sagittal STIR images, and axial gradient echo images. Additionally, axial and sagittal T1 weighted images were obtained after contrast enhancement with a gadolinium-based intravenous contrast agent.. FINDINGS: BRAIN AND SPINAL CORD: The visualized spinal cord is normal in caliber, position, and signal intensity. The visualized portion of the brain is unremarkable. The cerebellar tonsils are normal in position. ALIGNMENT: There is straightening with reversal of the normal cervical lordosis. There is trace anterolisthesis of C5 on C6. VERTEBRAL BODIES: There is persistent subdental synchondrosis. There is anterolateral marginal osteophyte formation most pronounced at C5-C6 and C6-C7 with mixed Modic type I and type II reactive end plate changes. JOINTS: There is uncovertebral and facet osteoarthritis. There is osteoarthritis of the atlantoaxial articulation. MUSCULATURE: Unremarkable INTERVERTEBRAL DISCS: There is diffuse loss of intervertebral disc height and T2 signal throughout the spine. AXIAL IMAGES: C2-C3: There is bilateral facet hypertrophy. There is moderate right and severe left neural foraminal narrowing. There is no significant central canal stenosis. C3-C4: There is a broad-based disc osteophyte complex. There is bilateral uncovertebral and facet hypertrophy. There is severe left and moderate right neural foraminal narrowing. There is mild narrowing of the central canal. C4-C5: There is a broad-based disc osteophyte complex with ligamentous, uncovertebral, and facet hypertrophy. There is severe bilateral neural foraminal narrowing. There is mild narrowing of the central canal. C5-C6: There is bilateral uncovertebral and facet hypertrophy. There is severe right and moderate left neural foraminal narrowing. There is no significant central canal stenosis. C6-C7: There is bilateral uncovertebral and facet hypertrophy. There is severe right and moderate left neural foraminal narrowing. There are bilateral perineural root sleeve cysts. There is no significant central canal stenosis. C7-T1: There is bilateral facet hypertrophy. There is mild bilateral neuroforaminal narrowing. There is a perineural root sleeve cyst on the right. There is no significant central canal stenosis. SOFT TISSUES: The visualized soft tissues of the neck are unremarkable. OTHER: There is no abnormal enhancement. IMPRESSION: DEGENERATIVE DISC DISEASE AND OSTEOARTHRITIS. THERE IS MULTILEVEL NEUROFORAMINAL NARROWING DESCRIBED ABOVE. THERE IS NO SIGNIFICANT CENTRAL CANAL STENOSIS. R2
[2017-12-05] MEDS ORDERED: MAGNESIUM OXID PO SCH (09:00)
[2017-12-05] MEDS ORDERED: CALCIUM CARB PO SCH (09:00)
[2017-12-05] MEDS ORDERED: D3 PO SCH (09:00)
[2017-12-05] MEDS: Lisinopril TAB* 10 MG PO SCH (09:48)
--- NOTE | 2017-12-05 11:27 | PN ---
Subjective Date of Service: 12/05/17 Interval History: Patient seen and examined at bedside. Denies fever, chills, shortness of breath , chest discomfort, N/V/D, focal weakness. Pt states that her gait is always unsteady and at her baseline. She reports ambulating earlier today. She reports left shoulder pain and a headache since her last fall. Tele: Sinus rhythm, rate 80-100s Family History: Unchanged from Admission Social History: Unchanged from Admission Past Medical History: Unchanged from Admission Objective Active Medications: Acetaminophen (Tylenol Tab*) 650 mg PO Q6H PRN Reason: FEVER/PAIN Cyclobenzaprine HCl (Flexeril Tab*) 10 mg PO Q8H PRN Reason: PAIN Heparin Sodium (Porcine) (Heparin Vial(*)) 5,000 units SUBCUT Q8HR [facility] Sodium Chloride (Ns 0.9% 1000 Ml*) 1,000 mls @ 50 mls/hr IV PER RATE [facility] Lidocaine (Lidoderm 5% Patch*) 1 patch TRANSDERM .SEE ORDER JANETH Lisinopril (Prinivil Tab*) 10 mg PO BID JANETH (Calcium Carb/Magnesium Oxid/D3 [ Calcium Magnesium + D Tablet] 2 Tab) 2 tab PO QAM JANETH Ondansetron HCl (Zofran Inj*) 4 mg IV Q6H PRN Reason: NAUSEA Vital Signs - 8 hr 12/05/17 12/05/17 12/05/17 03:28 07:39 08:00 Temperature 97.8 F 97.7 F Pulse Rate 88 92 Respiratory 16 16 16 Rate Blood Pressure 142/79 148/71 (mmHg) O2 Sat by Pulse 100 100 Oximetry Oxygen Devices in Use Now: None Appearance: NAD, sitting up in bed Ears/Nose/Mouth/Throat: Mucous Membranes Moist Respiratory: Symmetrical Chest Expansion and Respiratory Effort, Clear to Auscultation Cardiovascular: NL Sounds; No Murmurs; No JVD, RRR Abdominal: NL Sounds; No Tenderness; No Distention Extremities: No Edema Skin: - - Abrasion to left side of scalp. 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 Brown is a 72 yo female with PMH significant for HTN, anxiety, and ostoporosis who presented to the emergency room with complaints of spasticity and frequent falls. - Patient Problems (1) Frequent falls Code(s): R29.6 - REPEATED FALLS SNOMED Code(s): 640357919 Comment: - No syncopal episodes reported - Suspect multifactoral - Neurology consult, input appreciated - OT/PT, plan for continued outpatient treatment - Furhter labs pending (2) Osteoporosis Code(s): M81.0 - AGE-RELATED OSTEOPOROSIS W/O CURRENT PATHOLOGICAL FRACTURE SNOMED Code(s): 93862140 Comment: - Frequent falls - Continue vitamin D and calcium (3) HTN (hypertension) Code(s): I10 - ESSENTIAL (PRIMARY) HYPERTENSION SNOMED Code(s): 72075291 Comment: - Slightly hypertensive 140-150's - Continue Lisinopril (4) Anxiety Code(s): F41.9 - ANXIETY DISORDER, UNSPECIFIED SNOMED Code(s): 25798534 Comment: - Continue supportive care (5) DVT prophylaxis Code(s): XJI4403 - SNOMED Code(s): 262152256 (6) Full code status Code(s): Z78.9 - OTHER SPECIFIED HEALTH STATUS SNOMED Code(s): 645348395 Status and Disposition: OBV. Discharge to home when medically stable, possibly later today.
--- NOTE | 2017-12-05 12:59 | RAD ---
INDICATION: Possible thrombosis of the right internal jugular vein identified on recent MRI COMPARISON: MR head and neck December 04, 2017 TECHNIQUE: Real time ultrasound images of the bilateral internal jugular veins were acquired with conde scale and Doppler color flow imaging. FINDINGS: Bilaterally the internal jugular veins are adequately patent with normal color flow and respiratory phasicity. IMPRESSION: The internal jugular veins are patent according to sonographic criteria.
[2017-12-05] MEDS: Lidocaine PATCH 5%* 1 PATCH TRANSDERM SCH (14:47)
[2017-12-05] MEDS ORDERED: Lidocaine PATCH 5%* 1 PATCH TRANSDERM SCH (15:00)
[2017-12-05 17:21] VITALS: BP 156/87
[2017-12-05] MEDS ORDERED: Lidocaine Patch REMOVE* 1 NOTE MISC SCH (21:00)
--- NOTE | 2017-12-05 23:21 | PN ---
NEUROLOGICAL FOLLOWUP: DATE OF SERVICE: 12/05/[address] Ryder yesterday. HISTORY: She is a 72-year-old woman who has had chronic right-sided weakness and spasticity who has had progressive more than a year history of worsening balance problems and uses a walker so she does not fall. She has had no prior workup. She has had head traumas in the past. 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 She has a history of hypertension , cystocele, history of anemia, arthritis and right clavicle fracture secondary to a fall last fall. MEDICATIONS: Medicines include, 1. Lisinopril 10 mg twice daily. 2. Cyclobenzaprine 10 mg t.i.d. p.r.n. ALLERGIES: EPHEDRINE causes her to shake, MORPHINE causes hypotension. Naprosyn, tetracycline she gets rash, NARCOTICS cause hypotension. REVIEW OF SYSTEMS: She has had no bowel or bladder problems. PHYSICAL EXAMINATION: Temperature 98.1, pulse 90, respirations 16, blood pressure 157/70. She is alert and oriented. Normal speech. Cranial nerves II through XII are intact. Disc were sharp. Motor exam reveals increased spasticity in the right side. She had a wide-base stance with an unsteady Romberg. She had a spastic gait. Reflexes were 3+ reflexes on the right side, 2 on the left with 4 beats of clonus bilaterally, mute toes. Chest: Clear. Cardiovascular: Regular rate and rhythm. Abdomen: Soft with positive bowel sounds. DIAGNOSTIC DATA: Reviewed her MRI scan of her brain, which showed some white matter disease, most prominently in the left frontal head region, which in my mind raised the possibility of demyelinating disease, but it was not. Specific cervical MRI scan did not show any cord compression or significant central stenosis. There is multilevel foraminal narrowing. Labs included normal CBC, BMP today, initially her sodium was low at 134, normal TSH, folate, B12, vitamin D, LDL was 105. Toxicology was negative. ASSESSMENT AND PLAN: I wonder if Bruce has demyelinating disease for explanation of some of her spasticity. I am going to check visual evoked responses and I will check JOVANA, cardiolipin antibodies as well and I will need to follow her over time. Her history is not clear enough, so I would not begin her on disease modifying agents for MS. I am also checking a nerve conduction study EMG to make sure she does not have a neuropathy. Her stance and her balance issues are suggestive of neuropathy, but she has brisk reflex including ankle jerks, so I think this is unlikely to be the case, but she has confusing story, so I will assess her in detail. Thank you for sharing her case. [id number]/[facility] #: [id number] STEFANO
--- NOTE | 2017-12-06 03:37 | DS ---
CC: Dr. Garry Amezcua; Dr. Cb Hamm * DISCHARGE SUMMARY: DATE OF ADMISSION: 12/04/17 DATE OF DISCHARGE: 12/05/17 ATTENDING PHYSICIAN: Dr. Napoleon Holder * (dictated by Anna Chinchilla NP) PRIMARY CARE PROVIDER: Dr. Cb Hamm. PRIMARY DIAGNOSES: 1. Unspecified gait disorder. 2. Frequent falls. 3. Left scalp hematoma. SECONDARY DIAGNOSES: 1. Anxiety. 2. Osteoporosis. 3. Hypertension. CONSULTATIONS WHILE IN THE HOSPITAL: Dr. Pam Ryder and Dr. Garry Amezcua with Neurology. STUDIES WHILE IN THE HOSPITAL: Brain CT on 12/04/17. Radiologist's impression : No intracranial mass or hemorrhage. Scalp hematoma is noted in the left parietal area. Chest x-ray on 12/04/17. Radiologist's impression: Hyperinflation. No active cardiopulmonary disease. Left shoulder x-ray on 12/04/17. Radiologist's impression: The bony structures are normal for age. Brain MRI on 12/04/17. Radiologist's impression: Diffuse involutional change. Elevated T2/FLAIR signal within the periventricular, subcortical, and pontine white matter. While these findings are nonspecific, they can be seen in association with migraine headache, previous infection or inflammation, and chronic small vessel ischemia. Demyelinating disease is also within the differential, but is considered less likely in the absence of the appropriate clinical presentation. Moderate sinus mucosal inflammatory disease, without air fluid level to suggest acute sinusitis. Most of the flow void of the right internal jugular vein at the level of the jugular foramen. This may represent slow flow versus thrombus. Consider further evaluation with sonography of the right internal jugular vein. Cervical spine MRI on 12/04/17. Radiologist's impression: Degenerative disk disease and osteoarthritis. There is multi-level neuroforaminal narrowing as described above. There is no significant central canal stenosis. Bilateral jugular vein ultrasound on 12/05/17. Radiologist's impression: The internal jugular veins are patent according to sonographic criteria. DISCHARGE MEDICATIONS: New home medication: 1. Acetaminophen 650 mg oral every 6 hours as needed for fever or pain. Continued home medications: 1. Lidocaine patch 5% apply transdermal to left shoulder daily for 12 hours and remove for 12 hours. 2. Multivitamin 1 capsule oral every morning. 3. Lisinopril 10 mg oral twice daily. 4. Ibuprofen 400 mg oral twice daily as needed for pain. 5. Calcium, magnesium plus D 2 tablets oral every morning. 6. [place]-3 fish oil 1000 mg oral daily. 7. Cyclobenzaprine 10 mg oral 3 times daily as needed for pain. HISTORY OF PRESENT ILLNESS/HOSPITAL COURSE: Ms. Brown is a 72-year-old female with past medical history significant for hypertension and anxiety, who has had approximately 2 years of issues with her balance and frequent falls. On the day of the patient's presentation, she was sitting in a chair, leaning forward for something on her left side and fell off the chair, striking her head , resulting in a scalp hematoma. The patient denied any symptoms of vertigo prior to her fall. The patient is a poor historian, but reports multiple falls. She lives with her family and she has had multiple falls in multiple scenarios anywhere from falling while walking to falling from her chair. The patient has back spasms and spasms in her legs that she attributed to pelvic fracture she suffered in 2012 and has little spasticity in her upper arms secondary to a clavicle fracture she had in 2017. The patient reports frequent unsteadiness, feels that she is able to ambulate well with a walker. She reports that she has a dog that often so bumps into her and may contribute to some of her unsteadiness. The patient had some forgetfulness. The patient had to retire from [employer] and started using a walker at home due to her fall risk. Due to her fall, she presented to the emergency room for further evaluation. While in the emergency room, the patient had labs that were unremarkable. She had negative toxicology. She had a negative brain and cervical spine CT scan, negative chest x-ray, and negative shoulder x-ray. The patient had orthostatic vital signs checked in the emergency room and she was not orthostatic. She was seen in consultation by Neurology, who recommended she be admitted for further evaluation. Hospitalists were asked to evaluate the patient for admission. During the patient's hospitalization, she was seen by Physical Therapy and Occupational Therapy. It was felt she would benefit from outpatient therapy. The patient was reluctant, but highly encouraged to follow through with outpatient physical therapy. The patient underwent an MRI with no acute findings. The MRI read possible thrombus in the right internal jugular. She had bilateral jugular ultrasound showing patent internal jugulars. She had a cervical spine MRI showing neuroforaminal narrowing, but no significant central canal stenosis. The patent had an EMG during her stay that was reported by Neurology to show some peripheral neuropathy. It was felt that the patient was safe to go home. She had labs ordered that are pending at the time of discharge , an JOVANA, NMO IgG, cardiolipin IgG. Ms. Brown is stable for discharge to home today. Vital signs are as follows : Temperature 98.4, heart rate 89, respiratory rate 16, O2 100% on room air, blood pressure 156/87. DISCHARGE PLAN: Ms. Brown will be discharged to home. Activity as tolerated. She has been encouraged to ambulate with her walker to help with her stability. I have given her orders for physical therapy and occupational therapy outpatient. She has been encouraged to follow through with these test. In regards to the patient's frequent falls, again she has been encouraged to have physical therapy, walk with her walker. Her vitamin B12 is within normal limits. Her vitamin D is within normal limits. Her EMG showed some peripheral neuropathy. She has some further labs pending. She will need to follow up with Dr. Amezcua in 4 to 6 weeks. She has a followup appointment with her primary care provider, Dr. Cb Hamm, tomorrow 12/06/17 at 4:20 p.m. The patient has been encouraged to fall prevention measures such as picking up loose carpets, walking with her walker as previously stated. She has been continued on other usual home medications. In regards to her left shoulder pain , continue using lidocaine patches that she has at home. She has been asked to return to the emergency room for shortness of breath or chest discomfort. Points of discussion at followup: Please continue to encourage the patient to go to physical therapy. Follow fall prevention measures. Additionally, please follow up with the patient's pending labs of cardiolipin IgG, NMO IgG, and antinuclear antibody. The patient will also need to have a CINTHYA outpatient, which will be ordered by Neurology. Continue to monitor her scalp hematoma and monitor her for any signs of postconcussive syndrome. Currently, she has no concussion symptoms. This is a summarized report of a complex medical history and hospital stay. For further details, please see the entire medical record. TIME SPENT: Time for this discharge was approximately 50 minutes, greater than half of that was spent with the patient discussing discharge plans and instructions. CONDITION ON DISCHARGE: Stable. Reviewed by NATACHA WHEATLEY 12/07/17 1615 [id number]/[facility] #: [id number] STEFANO
== END 2017-12-05 15:15 | disposition home or self-care (01) ==
LOC: ED 11:05 → MEDTELE 18:34
PROVIDERS: ADMIT Internal Medicine; ATTEND Internal Medicine
DX: R26.9 Unspecified abnormalities of gait and mobility (principal); Z91.81 History of falling; S00.03XA Contusion of scalp, initial encounter; W19.XXXA Unspecified fall, initial encounter; Y93.89 Activity, other specified; Y92.9 Unspecified place or not applicable; I10 Essential (primary) hypertension; R53.1 Weakness; Z79.899 Other long term (current) drug therapy; Z88.5 Allergy status to narcotic agent; Z88.8 Allergy status to other drugs, medicaments and biological substances; M25.512 Pain in left shoulder; R51 Headache; M19.90 Unspecified osteoarthritis, unspecified site; M50.33 Other cervical disc degeneration, cervicothoracic region; M47.892 Other spondylosis, cervical region; F41.9 Anxiety disorder, unspecified; M81.0 Age-related osteoporosis without current pathological fracture; M50.323 Other cervical disc degeneration at C6-C7 level
CPT/HCPCS: 36415; 70450; 70553; 71045; 72156; 80048; 80053; 80061; 80307; 80320; 80329; 81003; 82306; 82607; 82746; 83036; 83735; 84443; 84484; 85025; 86038; 86147; 86255; 86431; 93005; 93970; 95885; 95909; 96374; 99284; A9270-GY; A9579; G0378; G0480; G8978-GP-CJ; G8979-GP-CI; G8987-GO-CI; G8988-GO-CI; G8989-GO-CI; J1644; J1885; J3480

== ENCOUNTER 2017-12-09 11:51 | Emergency (ER) | payer MEDICARE ==
[2017-12-09] MEDS ORDERED: NS 0.9% 1000 ML* 1,000 ML IV ONE (13:17)
--- NOTE | 2017-12-09 13:40 | UC ---
Minor Trauma HPI - HPI Summary HPI Summary: This is lalito Cary documenting for Alexi Gates MD. This patient is a 72 year old female presenting to [facility] with L shoulder pain and L-sided head pain s/p falling out of a chair at 1100. While trying to get up , she reports that she moved a little then lost her balance. She has had prior incident similar to this. The pain is aggravated by movement. She reports after falling, she was unable to get up but was able to get to the phone and call her [id number]. She denies LOC, hip pain, leg pain, or neck pain, and is not taking blood thinners. She reports having balance issues that she saw neurologist Dr. Garry Amezcua for last where she had an MRI, nerve test , and bloodwork done. - History of Current Complaint Chief Complaint: EDTraumaMultiple Stated Complaint: FALL Time Seen by Provider: 12/09/17 13:10 Hx Obtained From: Patient Onset/Duration: Sudden Onset, Lasting Hours - at 1100, Still Present Onset Of Pain: Immediate Severity Initially: Severe Severity Currently: Severe Pain Intensity: 8 Pain Scale Used: 0-10 Numeric Mechanism Of Injury: Fall From Height Of: - from sitting Aggravating Factor(s): Movement Alleviating Factor(s): Nothing Associated Signs And Symptoms: Negative: Loss Of Consciousness - She reports after falling, she was unable to get up but was able to get to the phone and call her [id number]. She denies LOC, hip pain, leg pain, or neck pain, and is not taking blood thinners. Related History: Positive: Similar Episode - Allergies/Home Medications Allergies/Adverse Reactions: Allergies Allergy/AdvReac Type Severity Reaction Status Date / Time ephedrine Allergy Shakes Verified 11/14/17 18:51 morphine Allergy See Comment Verified 11/14/17 18:51 naproxen Allergy Unknown Verified 11/14/17 18:51 Reaction Details Tetracyclines Allergy Rash Verified 11/14/17 18:51 narcotics Allergy See Comment Uncoded 11/14/17 18:51 PMH/Surg Hx/FS Hx/Imm Hx Cardiovascular History: Hypertension, Other - anemia Other Cardiovascular History: anemia Respiratory History: Other Other Respiratory History: chronic sinusitis Psychological History: Anxiety, Depression Other History Of: Negative For: Anticoagulant Therapy - Surgical History Surgical History: Yes Surgery Procedure, Year, and Place: LEFT INGUINAL hernia repair-05/2015-FOR STRANGULATION. FEMORAL HERNIA REPAIR-07/2015 - Family History Known Family History: Positive: Hypertension - Social History Alcohol Use: Daily Alcohol Amount: A GLASS OF wine with dinner Substance Use Type: None Smoking Status (MU): Never Smoked Tobacco Amount Used/How Often: HX OF EXPOSURE TO 2ND HAND SMOKE IN THE PAST Have You Smoked in the Last Year: No - Immunization History Most Recent Influenza Vaccination: never Most Recent Tetanus Shot: within 10 years Review of Systems ENT: Other - L-sided head pain; denies neck pain Musculoskeletal: Other: - L shoulder pain; denies hip pain, leg pain Neurological: Other - balance issues; denies LOC All Other Systems Reviewed And Are Negative: Yes Physical Exam - Summary Physical Exam Summary: VITAL SIGNS: Reviewed. GENERAL: Patient is an elderly, thin and fragile FEMALE who is lying comfortable in the stretcher. Patient is not in any acute respiratory distress. HEAD AND FACE: No signs of trauma. No ecchymosis, hematomas or skull depressions. No sinus tenderness. EYES: PERRLA, EOMI x 2, No injected conjunctiva, no nystagmus. EARS: Hearing grossly intact. Ear canals and tympanic membranes are within normal limits. MOUTH: Oropharynx within normal limits. NECK: Supple, trachea is midline, no adenopathy, no JVD, no carotid bruit, no c- spine tenderness, neck with full ROM. CHEST: Symmetric, no tenderness at palpation LUNGS: Clear to auscultation bilaterally. No wheezing or crackles. CVS: Regular rate and rhythm, S1 and S2 present, no murmurs or gallops appreciated. ABDOMEN: Soft, non-tender. No signs of distention. No rebound no guarding, and no masses palpated. Bowel sounds are normal. EXTREMITIES: Bruising in left shoulder that looks like it's resolving. There is decreased ROM in the left shoulder secondary to pain. NEURO: Alert and oriented x 3. No acute neurological deficits. Speech is normal and follows commands. GCS 15. SKIN: Dry and warm Triage Information Reviewed: Yes Vital Signs: Initial Vital Signs Temp 97.8 F 12/09/17 12:03 Pulse 98 12/09/17 12:03 Resp 18 12/09/17 12:03 BP 142/114 12/09/17 12:03 Pulse Ox 100 12/09/17 12:03 Vital Signs Reviewed: Yes Diagnostics - Radiology shoulder x ray Xray Interpretation: No Acute Changes - AC JOINT SEPARATION Shoulder X-Ray Radiology Interpretation Completed By: Radiologist - AC JOINT SEPARATION ED Physician has reviewed this radiology report Chest X-Ray Radiology Interpretation Completed By: Radiologist - HYPERINFLATION, CONSISTENT WITH COPD. NO ACTIVE CARDIOPULMONARY DISEASE ED Physician has reviewed this radiology report - EKG EKG Comments: EKG done at 1327. No ST elevations and normal axis. Cardiac Rate: NL - 84 BPM Cardiac Rhythm: Sinus: Normal Minor Trauma Course/Dx - Course Course Of Treatment: This patient is a 73-year-old female who presents to the emergency department after the patient fell of a chair hitting her head and shoulder. The patient reports no loss of consciousness on the left shoulder pain. The patient is allergic to morphine and narcotics therefore the patient was given Tylenol for the pain. This is is without any significant abnormality , urinalysis is negative for UTI, and urine toxicology is negative. Head CT impression: No acute interconnected pathology, mild chronic small vessel ischemia, mild sinus mucosal inflammatory disease, with an air-fluid level in the sphenoid sinus. It may represent an acute sinusitis. C-spine CT impression: Osteopenia. Degenerative disc disease and osteoarthritis. No acute osseous injury of the cervical spine. Chest x-ray impression: Hyperinflation, consistent with COPD. No active Cardiopulmonary disease. Left shoulder x-ray impression: AC joint separation. At this time I discussed all the findings and test results with the patient and the need to follow up with primary care physician and also neurology. The patient understands and agrees. At this point the patient is hemoglobin and crit stable. She is alert and oriented 3. The patient is ambulating in the ER. The patient was given a shoulder immobilizer. She will also be given a referral for orthopedics. - Differential Dx/Diagnosis Differential Diagnosis/HQI/PQRI: Other - Mechanical fall, shoulder trauma, and AC separation Provider Diagnoses: Mechanical fall, shoulder trauma, and AC separation Discharge - Sign-Out/Discharge Documenting (check all that apply): Patient Departure - Discharge Plan Condition: Stable Disposition: HOME Prescriptions: Ibuprofen TAB* [Motrin TAB* 600 MG] 600 mg PO Q8H PRN #20 tab PRN Reason: Pain Lidocaine PATCH 5%* [Lidoderm 5% Patch*] 1 patch TRANSDERM DAILY #2 patch Patient Education Materials: Acromioclavicular Separation (ED), Fall Prevention for Older Adults (ED), Shoulder Pain (ED) Referrals: Lewis Bay MD [Medical Doctor] - 3 Days Garry Amezcua MD [Medical Doctor] - 3 Days Additional Instructions: FOLLOW UP WITH YOUR PRIMARY CARE PROVIDER WITHIN ONE WEEK FOR HIGH BLOOD PRESSURE NOTED TODAY. RETURN TO THE ED FOR ANY WORSENING OR NEW SYMPTOMS - Billing Disposition and Condition Condition: STABLE Disposition: Home
[2017-12-09] MEDS ORDERED: Acetaminophen TAB* 325 MG PO ONE (13:59)
--- NOTE | 2017-12-09 14:00 | RAD ---
HISTORY: head trauma COMPARISONS: December 04, 2017 TECHNIQUE: Multiple contiguous axial CT scans were obtained of the head without intravenous contrast. FINDINGS: HEMORRHAGE/INFARCT: There is no hemorrhage or acute infarct. MASSES/SHIFT: There is no mass or shift. EXTRA-AXIAL SPACES: There are no extra-axial fluid collections. SULCI AND VENTRICLES: The sulci and ventricles are normal in size and position for the patient's stated age. CEREBRUM: There is patchy hypoattenuation of the periventricular white matter. BRAINSTEM: There are no focal parenchymal abnormalities. CEREBELLUM: There are no focal parenchymal abnormalities. VESSELS: The vessels are grossly normal. PARANASAL SINUSES: There is mucosal thickening with an air-fluid level within the sphenoid sinus. There is mucosal thickening of ethmoid air cells. ORBITS: The orbits are unremarkable. BONES AND SOFT TISSUE: There is persistent but decreased soft tissue swelling of the left scalp. OTHER: None IMPRESSION: 1. NO ACUTE INTRACRANIAL PATHOLOGY. 2. MILD CHRONIC SMALL VESSEL ISCHEMIC CHANGE. 3. MILD SINUS MUCOSAL INFLAMMATORY DISEASE, WITH AN AIR-FLUID LEVEL IN THE SPHENOID SINUS. IN THE CORRECT CLINICAL SETTING, THIS MAY REPRESENT ACUTE SINUSITIS
--- NOTE | 2017-12-09 14:07 | RAD ---
HISTORY: head and neck trauma COMPARISONS: None TECHNIQUE: Multiple contiguous axial CT scans were obtained of the cervical spine without intravenous contrast, with coronal and sagittal multiplanar reformations. FINDINGS: BRAIN: The visualized brain is unremarkable CENTRAL CANAL: Evaluation of the central canal is limited on CT technique; however, there is no obvious canalicular mass or epidural hemorrhage. ALIGNMENT: There is straightening with reversal of the normal cervical lordosis. There is grade 1 anterolisthesis of C4 on C5. VERTEBRAL BODIES: There is diffuse osteopenia. Is multilevel anterolateral marginal osteophyte formation. There is no displaced fracture. JOINTS: There is uncovertebral and facet osteoarthritis. MUSCULATURE: Unremarkable INTERVERTEBRAL DISCS: There is diffuse loss of intervertebral disc height. AXIAL IMAGES: C2-C3: There is bilateral facet hypertrophy. There is moderate left neural foraminal narrowing. There is no significant central canal stenosis. C3-C4: There is bilateral facet hypertrophy. There is mild bilateral neuroforaminal narrowing. No significant central canal stenosis. C4-C5: There is bilateral facet hypertrophy. There is no significant neural foraminal narrowing of central canal stenosis. C5-C6: There is right greater than left uncovertebral hypertrophy. There is mild right neuroforaminal narrowing. There is no osseous central canal stenosis. There is a mild broad-based disc osteophyte complex. There is mild bilateral neural foraminal narrowing. There is no osseous central canal stenosis. C6-C7: There is no osseous neural foraminal narrowing or central canal stenosis. C7-T1: There is no osseous neural foraminal narrowing or central canal stenosis. SOFT TISSUES: The visualized soft tissues of the neck are unremarkable. The prevertebral fat stripe is preserved. OTHER: None. IMPRESSION: 1. OSTEOPENIA. 2. DEGENERATIVE DISC DISEASE AND OSTEOARTHRITIS. 3. NO ACUTE OSSEOUS INJURY TO THE CERVICAL SPINE.
[2017-12-09 14:15] LABS: Urine Appearance Clear; Urine Blood Negative (Negative); Urine Color Straw; Urine Ketones Trace (Negative); Urine Protein Negative (Negative); Urine Specific Gravity 1.003 (1.010-1.030); Urine Urobilinogen Negative (Negative)
[2017-12-09 14:21] LABS: ABS Basophils 0.1 10^3/ul (0-0.2); ABS Eosinophils 0.1 10^3/ul (0-0.6); ABS Lymphocytes 1.1 10^3/ul (1.0-4.8); ABS Monocytes 0.5 10^3/ul (0-0.8); ABS Neutrophils 7.2 10^3/ul (1.5-7.7); ABS Nucleated RBC 0 10^3/ul; Hematocrit 40 % (35-47); Hemoglobin 13.6 g/dl (12.0-16.0); Lymphocyte % 12.2 % (25-47); Mean Corpuscular HGB Conc 34 g/dl (31-36); Mean Corpuscular Hemoglobin 31 pg (27-31); Mean Corpuscular Volume 91 fL (80-97); Mean Platelet Volume 6.9 um3 (7.4-10.4); Nucleated Red Blood Cells % 0.1; Platelet Count 345 10^3/ul (150-450); Red Blood Count 4.37 10^6/ul (4.00-5.40); Red Cell Distribution Width 13 % (10.5-15)
[2017-12-09 14:47] LABS: EGFR Non-African American 121.3 (>60)
--- NOTE | 2017-12-09 15:12 | RAD ---
HISTORY: fall, left shoulder pain COMPARISONS: December 04, 2017 VIEWS: 4: Frontal dual-energy and lateral views of the chest. FINDINGS: CARDIOMEDIASTINAL SILHOUETTE: The cardiomediastinal silhouette is normal. IDRIS: The idris are normal. PLEURA: The costophrenic angles are sharp. No pleural abnormalities are noted. LUNG PARENCHYMA: There is hyperinflation with flattening of the diaphragm and expansion of the AP diameter of the chest. ABDOMEN: The upper abdomen is clear. There is no subphrenic gas. BONES AND SOFT TISSUES: There is postsurgical change to the right clavicle. OTHER: None. IMPRESSION: HYPERINFLATION, CONSISTENT WITH COPD. NO ACTIVE CARDIOPULMONARY DISEASE.
[2017-12-09 15:14] VITALS: BP 167/90
--- NOTE | 2017-12-09 15:14 | RAD ---
INDICATION: Left shoulder injury. Fall. COMPARISON: Left shoulder December 04, 2017 TECHNIQUE: AP, axillary, and Y views were obtained. FINDINGS: There is soft tissue swelling about the AC joint with AC joint separation. There is cephalad displacement of the distal clavicle consistent with coracoclavicular disruption.. IMPRESSION: AC JOINT SEPARATION.
[2017-12-09] MEDS ORDERED: Ibuprofen TAB* 600 MG PO ONE (16:10)
[2017-12-09] MEDS ORDERED: Lidocaine PATCH 5%* 1 PATCH ONE (16:15)
[2017-12-09] MEDS ORDERED: Lidocaine PATCH 5%* 1 PATCH TRANSDERM SCH ×2 (17:00)
[2017-12-09] MEDS ORDERED: Lidocaine Patch REMOVE* 1 NOTE MISC SCH (21:00)
== END 2017-12-09 16:27 | disposition home or self-care (01) ==
LOC: ED 11:51
DX: S09.90XA Unspecified injury of head, initial encounter (principal); S43.102A Unspecified dislocation of left acromioclavicular joint, initial encounter; W07.XXXA Fall from chair, initial encounter; Y92.9 Unspecified place or not applicable; M85.88 Other specified disorders of bone density and structure, other site; M50.322 Other cervical disc degeneration at C5-C6 level; M47.812 Spondylosis without myelopathy or radiculopathy, cervical region; Z88.8 Allergy status to other drugs, medicaments and biological substances; Z88.3 Allergy status to other anti-infective agents; Z88.5 Allergy status to narcotic agent
CPT/HCPCS: 36415; 70450; 71046; 72125; 80053; 80307; 80320; 81003; 82550; 83605; 84484; 85025; 93005; 99283; A9270-GY; G0480